=== PATIENT | male | born 1975 | race Caucasian/White ===

== ENCOUNTER 2017-03-15 19:20 | Emergency (ER) | payer OTHER ==
[~2017-03-15] VITALS: Ht 175.3 cm; Wt 100.4 kg
[~2017-03-15 19:20] MED LIST: ERGO1CAP35 PO
[2017-03-15 19:28] VITALS: Ht 175.3 cm; Wt 100.4 kg
[2017-03-15 19:52] LABS: HEMATOCRIT 44.3 % (42-52); MEAN CELL VOLUME 90.6 fL (80-100); MEAN CORPUSCULAR HEMOGLOBIN 32.9 pg (25-34); MEAN CORPUSCULAR HGB CONC 36.3 g/dl (32-36); MEAN PLATELET VOLUME 10.5 fL (7.4-10.4); PLATELET COUNT 275 K/uL (130-400); RED BLOOD COUNT 4.89 M/uL (4.7-6.1); WHITE BLOOD COUNT 9.05 K/uL (4.8-10.8)
[2017-03-15 20:02] LABS: PROTHROMBIN TIME (PATIENT) 10.2 SECONDS (9.0-12.0)
[2017-03-15 20:06] LABS: ALT/SGPT 61 U/L (12-78); BLOOD UREA NITROGEN 12 mg/dl (7-18); BUN/CREATININE RATIO 11.3 (10-20); CALCIUM 8.6 mg/dl (8.5-10.1); CARBON DIOXIDE 26 mmol/L (21-32); CHLORIDE 108 mmol/L (98-107); GLUCOSE 118 mg/dl (70-99); POTASSIUM 3.6 mmol/L (3.5-5.1); SODIUM 141 mmol/L (136-145)
--- NOTE | 2017-03-15 20:09 | DIAGNOSTIC IMAGING REPORT ---
SINGLE VIEW CHEST CLINICAL HISTORY: Atypical chest pain. Dyspnea. FINDINGS: An AP, portable, upright chest radiograph is obtained. No prior studies are available for comparison at the time of dictation. The examination is degraded by portable technique and patient rotation. The cardiomediastinal silhouette is unremarkable. The lungs and pleural spaces are clear. No pneumothorax is seen. The bony thorax is grossly intact. IMPRESSION: No active disease in the chest. Electronically signed by: Flakito Garcia M.D. 03/15/2017 8:08 PM Dictated Date/Time: 03/15/2017 8:08 PM
[2017-03-15 20:11] LABS: ALB/GLOB RATIO 1.3 (0.9-2); ALKALINE PHOSPHATASE 71 U/L (45-117); AST/SGOT 29 U/L (15-37); CKMB/CK RATIO 0.5 (0-3.0)
[2017-03-15] MEDS ORDERED: IBUP-1050 PO (20:23)
[2017-03-15] MEDS ORDERED: PROB1CAP41 PO (20:23)
[2017-03-15] MEDS ORDERED: ZNTT/150 PO (20:23)
[2017-03-15] MEDS ORDERED: CHOL1000 PO (20:23)
[2017-03-15] MEDS ORDERED: KETOROLAC TROMETHAMINE 30 MG/ML VIAL IV STA (21:03)
--- NOTE | 2017-03-15 21:04 | EMERGENCY ROOM VISIT NOTE ---
History Report prepared by Lynn: Ken Cox Under the Supervision of: Dr. Nahid Mike M.D. First contact with patient: 19:43 Chief Complaint: CHEST PAIN Stated Complaint: CHEST PAIN SOB History of Present Illness The patient is a 42 year old male who presents to the Emergency Room with complaints of intermittent left sided chest pain beginning today. He also complains of shortness of breath and pain radiating into his back. He has no personal or family history of cardiac issues or blood clots. The patient describes his symptoms as "twinges" of pain. He notes that he has been travelling, and recently returned by car from [place]. He denies any calf swelling, rashes, fevers, or abdominal pain. The patient has a history of seasonal allergies. Source of History: patient Onset: Today Position: chest (left) Quality: other ("twinges" of pain) Timing: intermittent Associated Symptoms: + SOB, + back pain, No fevers, No rash Note: The patient denies any leg swelling. Review of Systems See HPI for pertinent positives & negatives. A total of 10 systems reviewed and were otherwise negative. Past Medical & Surgical Medical Problems: (1) No Known Active Medical Problems Family History No pertinent family history stated. Social History Smoking Status: Never Smoker Marital Status: Occupation Status: employed Current/Historical Medications Scheduled Cholecalciferol (Vitamin D3), 1 TAB PO WK Probiotic Product (Probiotic Daily), 1 CAP PO DAILY Scheduled PRN Ibuprofen (Advil), 600-800 MG PO Q8 PRN for Pain Ranitidine (Zantac), 150 MG PO DAILY PRN for Dyspepsia Allergies Coded Allergies: Erythromycin (Verified Allergy, Unknown, ., 03/15/17) Penicillins (Verified Allergy, Unknown, ., 03/15/17) Physical Exam Vital Signs Date Time Temp Pulse Resp B/P (MAP) Pulse Ox O2 Delivery O2 Flow Rate FiO2 03/15/17 21:27 36.7 86 18 132/87 96 03/15/17 21:13 82 16 141/87 96 Room Air 03/15/17 21:13 132/82 03/15/17 19:45 84 18 141/87 97 Room Air 03/15/17 19:43 98 Room Air 03/15/17 19:40 85 03/15/17 19:28 36.7 87 16 116/80 97 Room Air Physical Exam GENERAL: Patient is anxious appearing and in minimal distress. HEENT: No acute trauma, normocephalic atraumatic, mucous membranes moist, no nasal congestion, no scleral icterus. NECK: No stridor, no adenopathy, no meningismus, trachea is midline. LUNGS: No dyspnea. Clear to auscultation and equal bilaterally. No wheeze, no rhonchi. HEART: Regular rate and rhythm. No murmurs, rubs, gallops appreciated. ABDOMEN: Soft, nontender, bowel sounds positive, no masses appreciated, no peritonitis. BACK: No midline tenderness, no CVA tenderness EXTREMITIES: Normal motion all extremities, no cyanosis, no edema. NEUROLOGIC: Alert and oriented, no acute motor or sensory deficits, no focal weakness, cranial nerves grossly intact. SKIN: No rash, no jaundice, no diaphoresis. Medical Decision & Procedures ER Provider Diagnostic Interpretation: X ray results are stated below per my interpretation and the radiologist's interpretation. SINGLE VIEW CHEST FINDINGS: An AP, portable, upright chest radiograph is obtained. No prior studies are available for comparison at the time of dictation. The examination is degraded by portable technique and patient rotation. The cardiomediastinal silhouette is unremarkable. The lungs and pleural spaces are clear. No pneumothorax is seen. The bony thorax is grossly intact. IMPRESSION: No active disease in the chest. Electronically signed by: Flakito Garcia M.D. Laboratory Results 03/15/17 19:39 03/15/17 19:39 Test 03/15/17 19:39 03/15/17 19:47 Red Blood Count 4.89 M/uL (4.7-6.1) Mean Corpuscular Volume 90.6 fL (80-100) Mean Corpuscular Hemoglobin 32.9 pg (25-34) Mean Corpuscular Hemoglobin Concent 36.3 g/dl (32-36) RDW Standard Deviation 40.7 fL (36.4-46.3) RDW Coefficient of Variation 12.3 % (11.5-14.5) Mean Platelet Volume 10.5 fL (7.4-10.4) Prothrombin Time 10.2 SECONDS (9.0-12.0) Prothromb Time International Ratio 1.0 (0.9-1.1) Activated Partial Thromboplast Time 25.6 SECONDS (21.0-31.0) Partial Thromboplastin Ratio 1.0 D-Dimer < 190 ug/L FEU (0-500) Anion Gap 7.0 mmol/L (3-11) Est Creatinine Clear Calc Drug Dose 100.1 ml/min Estimated GFR () 94.1 Estimated GFR (Non- 81.2 BUN/Creatinine Ratio 11.3 (10-20) Calcium Level 8.6 mg/dl (8.5-10.1) Total Bilirubin 0.3 mg/dl (0.2-1) Aspartate Amino Transf (AST/SGOT) 29 U/L (15-37) Alanine Aminotransferase (ALT/SGPT) 61 U/L (12-78) Alkaline Phosphatase 71 U/L (45-117) Total Creatine Kinase 176 U/L (39-308) Creatine Kinase MB 0.9 ng/ml (0.5-3.6) Creatine Kinase MB Ratio 0.5 (0-3.0) Troponin I < 0.015 ng/ml (0-0.045) Total Protein 7.3 gm/dl (6.4-8.2) Albumin 4.1 gm/dl (3.4-5.0) Globulin 3.2 gm/dl (2.5-4.0) Albumin/Globulin Ratio 1.3 (0.9-2) Bedside Troponin I < 0.030 ng/ml (0-0.045) Laboratory results as reviewed by me. Medications Administered Medications (Trade) Dose Ordered Sig/Chandu Route Start Time Stop Time Status Last Admin Dose Admin Ketorolac Tromethamine (Toradol Inj) 30 mg NOW STAT IV 03/15/17 21:03 03/15/17 21:04 DC 03/15/17 21:03 30 MG ECG Indication: chest pain Rate (beats per minute): 76 Rhythm: normal sinus Findings: no acute ischemic change, no ectopy Comparison ECG Date: Today Change: no significant change ED Course 1943: The patient was evaluated in room A12B. A complete history and physical exam was performed. 2101: I reassessed the patient. He would like to go home. 2102: Ordered Toradol Inj 30 mg IV. 2109: Reevaluated the patient. Discussed results and discharge instructions: he verbalized understanding and agreement. The patient is ready for discharge. Medical Decision Differential: Cardiac Ischemia (STEMI, NSTEMI, Unstable Angina, etc), Aortic Dissection, Arrhythmia, Pulmonary Embolism, Pneumonia, Pneumothorax, MSK, Infectious, Pericarditis/Myocarditis, Esophageal Rupture, Gastrointestinal, amongst other pathologies entertained. 42 yr old male with several days left chest discomfort. Worse with respiration and movement. Consistent with pleurisy. EKG normal with Trop negative. No indication for second set trop given persistent symptoms over quite some time. Recent travel only PE risk and with negative dimer I do not feel that CT PE indicated. Stable, good vitals and breathing comfortably. NSAIDs. Reviewed RTED if worsening or other concerns. Stable at discharge. Customary discharge instructions reviewed with patient and . Medication Reconcilliation Current Medication List: was personally reviewed by me Blood Pressure Screening Patient's blood pressure: Elevated blood pressure (mildly) Blood pressure disposition: Referred to PCP Impression Primary Impression: Left sided chest pain Scribe Attestation The scribe's documentation has been prepared under my direction and personally reviewed by me in its entirety. I confirm that the note above accurately reflects all work, treatment, procedures, and medical decision making performed by me. Departure Information Dispostion Home / Self-Care Referrals Thomas Beal DO (PCP) Patient Instructions ED Chest Pain Pleurisy, [facility]
[2017-03-15 21:27] VITALS: BP 132/87; PULSE 86; TEMP 36.7; O2SAT 96
== END 2017-03-15 20:21 | disposition home or self-care (01) ==
LOC: C.EDB 19:20 → C.EDA 20:21
DX: R07.9 Chest pain, unspecified (principal); Z79.899 Other long term (current) drug therapy